=== PATIENT | female | born 1935 | race Caucasian/White ===

== ENCOUNTER 2024-09-15 15:18 | Outpatient (CLI) | payer OTHER, MEDICAID, MEDICARE | END 2024-09-15 15:19 | disposition home or self-care (01) | LOC: SCSLAB 15:18 → SCSRAD 15:19 | PROVIDERS: ATTEND Family Medicine | DX: J44.1 Chronic obstructive pulmonary disease with (acute) exacerbation (principal) | CPT/HCPCS: 36415; 71046; 80048; 87086; 87635 ==